=== PATIENT | male | born 1985 | race African-American/Black ===

== ENCOUNTER 2024-12-21 21:49 | Emergency (ER) | payer MEDICARE, OTHER ==
[~2024-12-21] VITALS: Ht 170.2 cm; Wt 86.0 kg
[2024-12-21] MEDS: HYDROCODONE/ACETAMINOPHEN 5/325 MG TABLET PO ONE (23:25)
[2024-12-21 23:50] VITALS: BP 162/96; TEMP 98.2; O2SAT 99
== END 2024-12-21 23:52 | disposition home or self-care (01) ==
LOC: M ED 21:49
DX: S62.396A Other fracture of fifth metacarpal bone, right hand, initial encounter for closed fracture (principal); Y92.019 Unspecified place in single-family (private) house as the place of occurrence of the external cause; Y93.9 Activity, unspecified; Y99.9 Unspecified external cause status